=== PATIENT | female | born 1990 | race Caucasian/White ===

== ENCOUNTER 2019-06-20 11:46 | Inpatient (IN) | payer SELFPAY ==
[2019-06-20 12:58] VITALS: BMI 26.3
[2019-06-20] MEDS ORDERED: Ibuprofen 800 MG TAB PO PRN (13:32)
[2019-06-20] MEDS ORDERED: hydrALAZINE 20 MG/ML VIAL SLOW IVP PRN ×2 (13:32→20:49)
[2019-06-20] MEDS ORDERED: HYDROcodone/Acetaminophen 5/325 mg Tablet PO PRN ×4 (13:32→20:49)
[2019-06-20] MEDS ORDERED: Ondansetron PF 4 MG/2 ML Vial IVP PRN ×2 (13:32→20:49)
[2019-06-20] MEDS ORDERED: Misoprostol 200 MCG TAB PR PRN (13:32)
[2019-06-20] MEDS ORDERED: NS / Oxytocin 40 units/1000ml 1,000 ML IV PRN (13:32)
[2019-06-20] MEDS ORDERED: Methylergonovine 0.2 MG/ML VIAL IM PRN ×2 (13:32→20:49)
[2019-06-20] MEDS ORDERED: Lidocaine 1% (PF) 30 ML VIAL SC PRN (13:32)
[2019-06-20] MEDS ORDERED: Promethazine HCl 25 MG/ML VIAL IM PRN (13:32)
[2019-06-20] MEDS ORDERED: Sodium Chloride 0.9% 1,000 ML IV PRN (13:37)
[2019-06-20 13:56] LABS: Hemoglobin 13.9 g/dL (12.0-16.0); Mean Corpuscular HGB CONC 33.5 g/dL (32.0-36.0); Mean Corpuscular Hemoglobin 29.5 pg (27.0-31.0); Mean Corpuscular Volume 88.1 fL (78.0-98.0); Platelet Count 157 thou/uL (130-400); RBC Distribution Width 12.2 % (11.5-14.5); Red Blood Cell (RBC) Count 4.73 mill/uL (4.20-5.40); White Blood Cell (WBC) Count 10.5 thou/uL (4.8-10.8)
[2019-06-20 14:29] LABS: Syphilis Antibody Nonreactive (Nonreactive); Syphilis Antibody Index 0.05 S/CO (<1.00 Non-Reactive)
[2019-06-20 14:32] LABS: HBSAg Index 0.16 S/CO (0-0.99); Hep B Surf Ag Non-Reactive S/CO (NonReactive)
[2019-06-20] MEDS ORDERED: NS w/ Oxytocin 10 units 500 ML IV SCH (14:35)
--- NOTE | 2019-06-20 19:12 | PDOC.LDHP ---
Labor and Delivery H&P Chief complaint: loss of fluid HPI: Patient was seen in the office today for MARIELY visit. On Thursday She had a gush of fluid and then had another trickle that night. Thursday morning she called on the call MD but did not have her call returned. She feels like when she bends over, it can cause some more leaking. She denies fever. Reports god movement. At the office, an amnisure was collected and was positive, so she was sent to the hospital Current gestational age (weeks): 39 Due date: 06/23/19 Dating criteria: last menstrual period (and first trimester US.) Grav: 3 Para: 2 OB History Details: 2013 - 7.6 Term Female. PPH 2017 9lb 9 oz term male. Current complications: none Abnormal US findings: No Current medications: pre- vitamins Allergies/Adverse Reactions: Allergies Allergy/AdvReac Type Severity Reaction Status Date / Time Ringer's solution,lactated Allergy Mild Verified 06/20/19 12:54 Social history: none - Physical Exam Vital signs reviewed and normal: yes General: breathing through contractions Lungs: nonlabored breathing Abdomen: gravid FHT: category 1 - Vaginal Exam cm dilated: 3 Effacement: 75% Station: -1 - OB Labs Blood type: O RH: positive Antibody Screen: negative HIV: negative RPR: negative HEPSAg: negative 1 hour GCT: negative GBS: negative Urine drug screen: negative Rubella: immune - Assessment L&D Assessment: term rupture in membranes - Plan Plan: admit to L&D -: Discussed expectant management for 1 hour using nipple stimulation to increase uterine contractions. Will start pitocin if not in a regular labor pattern after one hour of nipple stimulation Anticipate minimal cervical exams to decrease risk of infection monitor vitals for s/s of infection.
--- NOTE | 2019-06-20 19:21 | PDOC.OPDEL ---
OB Operative/Delivery Note Delivery Dr/Surgeon: Denilson Alcaraz CNM Pre-Delivery Diagnosis: active labor Procedure/Post Delivery Dx: spontaneous vaginal delivery Weeks gestation: 39 Anesthesia: none - Findings A Sex: female Weight: 8 lb 2 oz - 1 min: 9 - 5 min: 10 - Additional Findings/Plan Placenta delivered: spontaneous Repaired Obstetrical Laceration: other (un reparied right periurethral. hemostatic after pressure applied with Raytec.) Estimated blood loss: [id number] Compilations/Other Findings: Brisk bleeding after delivery of placenta. Pitocin started. Cytotec CA given 800mcg. Bleeding stopped with massage, pitocin, and cytoec. Methergine called for but not given. Post delivery plan: routine recovery
[2019-06-20] MEDS ORDERED: NS / Oxytocin 40 units/1000ml 1,000 ML IV SCH (20:49)
[2019-06-20] MEDS ORDERED: Milk Of Magnesia 30 ML UDCUP PO PRN (20:49)
[2019-06-20] MEDS ORDERED: Benzocaine-Menthol 82.5 ML CAN TOP PRN (20:49)
[2019-06-20] MEDS ORDERED: Bisacodyl 10 MG SUPP PR PRN (20:49)
[2019-06-20] MEDS: Docusate Calcium (SURFAK) 240 MG CAP PO SCH (22:22)
[2019-06-20] MEDS: Ibuprofen 800 MG TAB PO SCH (22:22)
[2019-06-21] MEDS: Ibuprofen 800 MG TAB PO SCH ×3 (04:54→21:41)
[2019-06-21 06:41] LABS: #Basophils 0.1 thou/uL (0.0-0.2); #Eosinphils 0.1 thou/uL (0.0-0.7); #Monocytes 0.8 thou/uL (0.11-0.59); #Neutrophils 8.3 thou/uL (1.40-6.50); %Basophils 0.6 % (0.0-1.0); %Eosinophils 0.5 % (0.0-10.0); %Lymphocytes 17.9 % (21.0-51.0); %Monocytes 6.9 % (0.0-10.0); %Neutrophils 74.1 % (42.0-75.0); Hemoglobin 10.8 g/dL (12.0-16.0); Mean Corpuscular HGB CONC 33.4 g/dL (32.0-36.0); Mean Corpuscular Hemoglobin 29.5 pg (27.0-31.0); Mean Corpuscular Volume 88.3 fL (78.0-98.0); Mean Platelet Volume 9.4 fL (7.4-10.4); Platelet Count 133 thou/uL (130-400); RBC Distribution Width 12.1 % (11.5-14.5); Red Blood Cell (RBC) Count 3.65 mill/uL (4.20-5.40); White Blood Cell (WBC) Count 11.2 thou/uL (4.8-10.8)
[2019-06-21] MEDS: Ferrous Sulfate 325 MG TAB PO SCH ×2 (07:20→16:32)
[2019-06-21] MEDS ORDERED: Adacel (T-DAP) 0.5 ML SYRINGE IM ONE (09:00)
[2019-06-21] MEDS: Prenatal Vitamin 1 TAB PO SCH (09:08)
[2019-06-21] MEDS: Docusate Calcium (SURFAK) 240 MG CAP PO SCH ×2 (09:08→21:41)
[2019-06-22] MEDS: Ibuprofen 800 MG TAB PO SCH (04:56)
[2019-06-22] MEDS: Ferrous Sulfate 325 MG TAB PO SCH (07:40)
[2019-06-22] MEDS: Prenatal Vitamin 1 TAB PO SCH (08:20)
[2019-06-22] MEDS: Docusate Calcium (SURFAK) 240 MG CAP PO SCH (08:20)
--- NOTE | 2019-06-22 08:27 | PDOC.PP ---
Post Progress Note Post Day #: 1 Subjective: patient is doing well. Denies having symptoms of anemia including feeling dizzy , weakness, SOB, or syncope. she is well PO intake tolerated: yes Flatus: yes Ambulation: yes Vital Signs (12 hours) Temp Pulse Resp BP Pulse Ox 06/22/19 01:30 97.6 F 68 18 104/63 99 06/21/19 20:50 98.4 F 78 16 109/58 L 99 Weight Weight 163 lb - Physical Examination General: NAD Respiratory: non-labored breathing Abdominal: lochia (minimal) Extremities: negative homans (B) Skin: no rash Neurological: no gross focal deficits Psychiatric: A&Ox3, normal affect Result Diagrams: 06/21/19 06:18 Additional Labs: Post Labs Blood Type O POSITIVE 06/20/19 14:11 Hep Bs Antigen Non-Reactive S/CO (NonReactive) 06/20/19 13:41 (1) (spontaneous vaginal delivery) Code(s): O80 - ENCOUNTER FOR FULL-TERM UNCOMPLICATED DELIVERY Status: Acute (2) hemorrhage Code(s): O72.1 - OTHER IMMEDIATE HEMORRHAGE Status: Acute - Assessment/Plan A: G3 now P3 s/p following IOL for PROM x 48 hours and complicated by PPH. NML exam PPD#1. Asymptomatic anemia. P: Observe in unit until tomorrow Routine care
[2019-06-22 08:45] VITALS: BP 106/65; TEMP 97.8
== END 2019-06-22 09:50 | disposition home or self-care (01) | DRG 806 ==
LOC: L&D-LIB 11:46 → 3SW 23:14
PROVIDERS: ADMIT Obstetrics & Gynecology; ATTEND Obstetrics & Gynecology
PROC: 10E0XZZ Delivery of Products of Conception, External Approach (ICD-10-PCS; principal; 2019-06-20)
PROC: 3E033VJ Introduction of Other Hormone into Peripheral Vein, Percutaneous Approach (ICD-10-PCS; 2019-06-20)
PROC: 0UQMXZZ Repair Vulva, External Approach (ICD-10-PCS; 2019-06-20)
DX: O42.92 Full-term premature rupture of membranes, unspecified as to length of time between rupture and onset of labor (principal); O72.1 Other immediate postpartum hemorrhage; Z37.0 Single live birth; D64.9 Anemia, unspecified; O70.0 First degree perineal laceration during delivery; O71.82 Other specified trauma to perineum and vulva; O90.81 Anemia of the puerperium
CPT/HCPCS: 36415; 85025; 85027; 86780; 86850; 86900; 86901; 87340; J2590